=== PATIENT | male | born 1975 | race Caucasian/White ===

== ENCOUNTER 2022-06-17 08:30 | Day surgery (SDC) | payer OTHER, SELFPAY ==
--- NOTE | 2022-06-17 08:20 | PM.HP.1 ---
History of Present Illness History of Present Illness Date Patient Seen: 06/17/22 Chief complaint: SDC Narrative: Screening colonoscopy PFSH Medical History (Updated 06/17/22 @ 08:07 by Roya Simon RN) Heartburn Hypothyroid Surgical History (Updated 06/17/22 @ 08:15 by Roya Simon, RN) Status post scrotal varicocelectomy Meds Home Medications and Allergies Home Medications Medication Instructions Recorded Confirmed Type ibuprofen 400 mg tablet 400 mg PO Q6H PRN Pain (Scale 06/17/22 06/17/22 History Score 1-3) levothyroxine 125 mcg tablet 125 mcg PO DAILY 06/17/22 06/17/22 History omeprazole 40 mg capsule,delayed 40 mg PO DAILY PRN Heartburn 06/17/22 06/17/22 History release Allergies Allergy/AdvReac Type Severity Reaction Status Date / Time niacin AdvReac Mild Hives Verified 06/17/22 08:04 Exam Narrative Exam Narrative: Oropharynx free of lesions Chest clear to auscultation percussion Cardiac exam reveals no S3 or murmur Assessment & Plan Assessment & Plan narrative: Need for screening colonoscopy. Risks, benefits, alternatives have been explained.
--- NOTE | 2022-06-17 08:21 | P.OP.COLON_ITS ---
Operative Date/Time/Diagnoses Date of procedure: 06/17/22 Pre-op diagnosis: See indication and findings Procedure & Clinicians Study performed: Colonoscopy Indications: Screening Surgeon: Stevenson Hu Procedure Notes Procedure in detail: After informed consent was obtained the patient was placed in left lateral d ecubitus position. The video colonoscope was introduced the rectum slowly advanced to the cecum. On slow withdrawal mucosa was carefully examined. Preparation was good. The scope was removed. The patient tolerated procedure well. Blood loss none Complications none Sedation mac Findings 1. Normal colonoscopy to cecum other than rare diverticula Follow-up colonoscopy in 10 years.
[2022-06-17 08:44] VITALS: BMI 26.0
[2022-06-17] MEDS: LACTATED RINGERS 1,000 ML 42 ML IV (08:57)
[2022-06-17 08:59] VITALS: BP 126/72; PULSE 59; RESP 20; TEMP 36.3; O2SAT 99
[2022-06-17 09:27] VITALS: BP 84/53; PULSE 50; RESP 14; TEMP 36.3; O2SAT 94
[2022-06-17 09:31] VITALS: BP 84/60; PULSE 54; RESP 12; O2SAT 92
[2022-06-17 09:38] VITALS: BP 108/77; PULSE 58; RESP 18; TEMP 36.3; O2SAT 97
[2022-06-17 09:39] VITALS: BP 106/74; PULSE 69; RESP 16; O2SAT 97
== END 2022-06-17 09:52 | disposition home or self-care (01) ==
PROVIDERS: Referring Provider Internal Medicine Gastroenterology; Visit Provider Internal Medicine Gastroenterology
PROC: 0DJD8ZZ Inspection of Lower Intestinal Tract, Via Natural or Artificial Opening Endoscopic (ICD-10-PCS; CPT 45378; principal; 2022-06-17 09:00)
DX: Z12.11 Encounter for screening for malignant neoplasm of colon (principal); K57.30 Diverticulosis of large intestine without perforation or abscess without bleeding
CPT/HCPCS: 45378; J2704

== ENCOUNTER → 2023-06-14 16:40 | Outpatient (CLI) | payer OTHER, SELFPAY ==
[2023-06-14 17:19] LABS: Add Manual Diff / Slide Review NO; Basophils Absolute Auto 100 /uL (0-100); Basophils Percent Auto 1.1 % (0-2); Eosinophils Absolute Auto 100 /uL (0-450); Eosinophils Percent Auto 1.7 % (2-4); Hematocrit 43.3 % (41-53); Hemoglobin 14.7 g/dL (13.5-17.5); Lymphocytes Absolute Auto 1800 /uL (1100-4500); Lymphocytes Percent Auto 36.5 % (25-40); Mean Corpuscular Hemoglobin 31.5 PG (26-34); Mean Corpuscular Volume 92.7 fL (80-100); Monocytes Absolute Auto 400 /uL (0-900); Monocytes Percent Auto 8.7 % (3-14); Neutrophils Absolute Auto 2500 /uL (1500-7000); Platelet Count 150 X10^3/uL (150-400); Red Blood Cell Count 4.67 X10^6/uL (4.5-5.9); Red Cell Distribution Width 12.5 % (11.6-14.8); White Blood Cell Count 4.9 X10^3/uL (4.5-11.0)
[2023-06-14 17:30] LABS: Hemoglobin A1C% w Est Avg Glu 5.5 % (4.0-6.0)
[2023-06-14 17:41] LABS: Alanine Aminotransferase 21 IU/L (<50); Albumin 4.7 g/dL (3.5-5.0); Albumin Globulin Ratio 1.4 (1.0-2.8); Alkaline Phosphatase 82 U/L (38-126); Aspartate Aminotransferase 31 IU/L (17-59); BUN Creatinine Ratio 15.2 (6-22); Bilirubin Total 0.9 mg/dL (0.2-1.3); Blood Urea Nitrogen 17 mg/dL (9-20); Calcium 9.7 mg/dL (8.4-10.2); Carbon Dioxide 32 mmol/L (22-32); Chloride 102 mmol/L (98-107); Cholesterol 257 mg/dL (140-199); Estimated Glomerular Filt Rate > 60 mL/min (>60); Globulin 3.3 g/dL (1.7-4.1); Glucose 86 mg/dL (70-100); HDL Cholesterol 76 mg/dL (40-60); HEMOLYSIS < 15 (0-50); LDL Cholesterol Calculated 167 mg/dL (<100); Potassium 4.2 mmol/L (3.4-5.1); Sodium 138 mmol/L (137-145); Triglycerides 71 mg/dL (35-150)
[2023-06-14 17:58] LABS: Vitamin D 25 Hydroxy (D3) 46.3 ng/mL (30.0-100.0)
[2023-06-14 18:11] LABS: Prostate Specific Antigen 0.689 ng/mL (0.10-4.00)
[2023-06-14 18:12] LABS: Thyroid Stimulating Hormone 2.64 uIU/mL (0.47-4.68)
== END ==
PROVIDERS: PCP Nurse Practitioner Family; Referring Provider Nurse Practitioner Family; Visit Provider Nurse Practitioner Family
DX: Z00.00 Encounter for general adult medical examination without abnormal findings (principal); Z12.5 Encounter for screening for malignant neoplasm of prostate; E78.5 Hyperlipidemia, unspecified; E03.9 Hypothyroidism, unspecified
CPT/HCPCS: 36415; 80053; 80061; 82306; 83036; 84153; 84443; 85025

== ENCOUNTER → 2024-01-31 16:13 | Outpatient (CLI) | payer OTHER, SELFPAY ==
--- NOTE | 2024-01-31 16:13 | DI.US.S_ITS ---
PROCEDURE: US SCROTUM INDICATIONS: scrotal pain radiating into pelvis TECHNIQUE: Real-time scanning was performed of the scrotum and testicles, with image documentation. Color and pulse Doppler interrogation was performed of both testicles. COMPARISON: None. FINDINGS: Right: Testicle is normal in size at 4.1 x 1.9 x 2.9 cm, and mildly heterogeneous in echotexture. Epididymis is normal in overall size and morphology. Small hydrocele. No varicoceles. Overlying scrotal skin is normal in thickness. Left: Testicle is normal in size at 4.1 x 2.3 x 2.8 cm, and mildly heterogeneous in echotexture. Epididymis is normal in overall size and morphology. Small hydrocele. Borderline left varicocele. Overlying scrotal skin is normal in thickness. Doppler: Color and pulse Doppler demonstrate normal and symmetric arterial flow in both testicles. IMPRESSION: 1. No sonographic signs of testicular torsion or epididymitis. 2. Small nonspecific bilateral hydroceles. Approved by: Sulaiman Foreman M.D. on 01/31/2024 at 17:45
== END ==
PROVIDERS: PCP Family Medicine; Referring Provider Family Medicine; Visit Provider Family Medicine
DX: N43.3 Hydrocele, unspecified (principal); Z87.438 Personal history of other diseases of male genital organs; Z86.79 Personal history of other diseases of the circulatory system; Z87.19 Personal history of other diseases of the digestive system
CPT/HCPCS: 76870; 93975

== ENCOUNTER → 2024-07-07 11:59 | Outpatient (CLI) | payer OTHER, SELFPAY ==
[2024-07-07 12:44] LABS: Add Manual Diff / Slide Review NO; Basophils Absolute Auto 0 /uL (0-100); Basophils Percent Auto 0.9 % (0-2); Eosinophils Absolute Auto 100 /uL (0-450); Eosinophils Percent Auto 2.2 % (2-4); Hematocrit 44.3 % (41-53); Hemoglobin 15.2 g/dL (13.5-17.5); Lymphocytes Absolute Auto 1700 /uL (1100-4500); Lymphocytes Percent Auto 33.9 % (25-40); Mean Corpuscular HGB Conc 34.3 % (30-36); Mean Corpuscular Volume 93.1 fL (80-100); Monocytes Absolute Auto 400 /uL (0-900); Monocytes Percent Auto 8.1 % (3-14); Neutrophils Absolute Auto 2800 /uL (1500-7000); Neutrophils Percent Auto 54.9 % (50-75); Platelet Count 159 X10^3/uL (150-400); Red Blood Cell Count 4.76 X10^6/uL (4.5-5.9)
[2024-07-07 13:44] LABS: Alanine Aminotransferase 22 IU/L (<50); Albumin 4.6 g/dL (3.5-5.0); Albumin Globulin Ratio 1.6 (1.0-2.8); Alkaline Phosphatase 82 U/L (38-126); Aspartate Aminotransferase 28 IU/L (17-59); BUN Creatinine Ratio 16.1 (6-22); Bilirubin Total 0.7 mg/dL (0.2-1.3); Blood Urea Nitrogen 18 mg/dL (9-20); Calcium 9.9 mg/dL (8.4-10.2); Carbon Dioxide 28 mmol/L (22-32); Chloride 102 mmol/L (98-107); Cholesterol 252 mg/dL (140-199); Estimated Glomerular Filt Rate > 60 mL/min (>60); Globulin 2.9 g/dL (1.7-4.1); Glucose 97 mg/dL (70-99); HDL Cholesterol 75 mg/dL (40-60); HEMOLYSIS < 15 (0-50); LDL Cholesterol Calculated 167 mg/dL (<100); Potassium 4.5 mmol/L (3.4-5.1); Sodium 138 mmol/L (137-145); Total Protein 7.5 g/dL (6.3-8.2); Triglycerides 50 mg/dL (35-150)
[2024-07-07 14:08] LABS: Thyroid Stimulating Hormone 1.68 uIU/mL (0.47-4.68)
[2024-07-07 14:15] LABS: Prostate Specific Antigen Scrn 0.669 ng/mL (0.1-4.0)
== END ==
LOC: LAB 12:00
PROVIDERS: PCP Family Medicine; Referring Provider Family Medicine; Visit Provider Family Medicine
DX: Z12.5 Encounter for screening for malignant neoplasm of prostate (principal); Z00.00 Encounter for general adult medical examination without abnormal findings; R35.0 Frequency of micturition; E78.00 Pure hypercholesterolemia, unspecified
CPT/HCPCS: 80053; 80061; 84443; 85025; G0103